=== PATIENT | female | born 1995 | race Hispanic/Latino ===

== ENCOUNTER → 2019-01-04 | Outpatient (CLI) | payer OTHER ==
--- NOTE | 2019-01-04 16:23 | Diagnostic Imaging Report ---
EXAMINATION: RIBS UNILAT W/CXR INDICATION: Swelling at costochondral junction COMPARISON: None FINDINGS: LINES/TUBES:None LUNGS:The lungs are well-inflated. No focal consolidation or pulmonary edema. PLEURA:No pleural effusion or pneumothorax. MEDIASTINUM:The cardiomediastinal silhouette appears normal in size and shape. BONES/SOFT TISSUES:There is a mildly asymmetric osseous prominence overlying the fourth through fifth costovertebral junction. ABDOMEN:No free air under the diaphragm. IMPRESSION: Mildly asymmetric ossific prominence centered on the fourth costovertebral junction may represent a prominent osteophyte. No focal pneumonia or pulmonary edema. Signed by: Elo Rosales MD on 01/04/2019 4:20 PM
== END ==
LOC: RAD 14:02
PROVIDERS: ATTEND Internal Medicine
DX: R93.89 Abnormal findings on diagnostic imaging of other specified body structures (principal)
CPT/HCPCS: 71101